=== PATIENT | female | born 1990 | race Caucasian/White ===

== ENCOUNTER 2020-09-02 14:48 | Emergency (ER) | payer SELFPAY ==
[~2020-09-02] VITALS: Ht 162.6 cm; Wt 108.9 kg
[2020-09-02] MEDS ORDERED: HYDROCODONE/APAP 10MG-325MG TAB PO ONE (15:15)
[2020-09-02] MEDS ORDERED: KETOROLAC TROMETHAMINE 60 MG/2 ML VIAL IM ONE (15:15)
[2020-09-02] MEDS ORDERED: DIAZEPAM 5 MG TAB PO PRN (15:15)
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
[2020-09-02] MEDS ORDERED: ULTRAM50 MG PO (17:27)
[2020-09-02] MEDS ORDERED: VALIUM2 MG PO (17:27)
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
[2020-09-02 17:54] VITALS: BP 135/75
--- NOTE | 2020-09-02 22:25 | Diagnostic Imaging Report ---
SHOULDER RIGHT COMPLETE - 2 views HISTORY: Pain COMPARISON: None available. FINDINGS: Bones: No acute displaced fracture. Osseous alignment is within normal limits. Joints: The joint spaces are well-maintained. Soft tissues: The soft tissues appear unremarkable. IMPRESSION: No acute radiographic abnormality. Signed by: Dr. Torsten Soliman MD on 09/02/2020 10:22 PM
--- NOTE | 2020-09-02 22:26 | Diagnostic Imaging Report ---
HAND 3+ VIEWS RIGHT - 3 views HISTORY: Pain COMPARISON: None available. FINDINGS: Bones: No acute displaced fracture. Osseous alignment is within normal limits. Joints: The joint spaces are well-maintained. Soft tissues: The soft tissues appear unremarkable. IMPRESSION: No acute radiographic abnormality. Signed by: Dr. Torsten Soliman MD on 09/02/2020 10:23 PM
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
== END 2020-09-02 17:56 | disposition home or self-care (01) ==
LOC: ER 15:28
DX: M54.9 Dorsalgia, unspecified (principal); M54.2 Cervicalgia; M25.511 Pain in right shoulder; M79.18 Myalgia, other site; M79.641 Pain in right hand; V43.62XA Car passenger injured in collision with other type car in traffic accident, initial encounter; Y92.488 Other paved roadways as the place of occurrence of the external cause
CPT/HCPCS: 72125; 72131; 73030; 73130; 99283; J1885